=== PATIENT | female | born 1975 ===

== ENCOUNTER 2024-01-09 14:00 | Emergency (ER) | payer SELFPAY ==
[~2024-01-09] VITALS: Ht 154.9 cm; Wt 65.3 kg
[2024-01-09] MEDS: MethylPREDNISolone SOD SUCC 125 MG/2 ML VIAL IVP ONE (14:09)
[2024-01-09 14:12] VITALS: TEMP 98.6
[2024-01-09 14:18] VITALS: PULSE 80; RESP 20; O2SAT 98
[2024-01-09] MEDS: IPRATROPIUM BROMIDE 0.5 MG/2.5 ML NEB SOLUTION NEB ONE ×2 (14:18→15:50)
[2024-01-09] MEDS: ALBUTEROL SULFATE 2.5 MG/0.5 ML NEB SOLUTION NEB ONE ×2 (14:18→15:50)
[2024-01-09] MEDS ORDERED: IPRAHFA IH (14:25)
[2024-01-09] MEDS ORDERED: ALBU18HF12 IH (14:25)
[2024-01-09] MEDS ORDERED: TRAZ-252 PO (14:27)
[2024-01-09] MEDS ORDERED: CLON-598 PO (14:27)
[2024-01-09] MEDS ORDERED: VORT20TA PO (14:27)
[2024-01-09] MEDS ORDERED: FLUT12AE20 IH (14:27)
[2024-01-09] MEDS ORDERED: PANT20TA18 PO (14:27)
[2024-01-09 14:31] VITALS: PULSE 78; RESP 20; O2SAT 100
[2024-01-09] MEDS: ACETAMINOPHEN 500 MG TABLET PO ONE (14:31)
[2024-01-09 15:12] LABS: BASOPHILS % (AUTO) 1.3 % (0.0-2.0); EOSINOPHILS % (AUTO) 0.9 % (1.0-6.0); HEMATOCRIT 39.7 % (36-46); HEMOGLOBIN 12.7 g/dL (12.0-16.0); LYMPHOCYTES # (AUTO) 2.4 K/uL (1.0-4.8); LYMPHOCYTES % (AUTO) 26.6 % (22.0-44.0); MEAN CORPUSCULAR HEMOGLOBIN 27.6 pg (26.0-34.0); MEAN CORPUSCULAR HGB CONC 32.1 G/dL (31.0-37.0); MEAN CORPUSCULAR VOLUME 86 fL (80-100); MONOCYTES # (AUTO) 0.5 K/uL (0.1-1.0); MONOCYTES % (AUTO) 5.4 % (2.0-9.0); NEUTROPHILS # (AUTO) 5.8 K/uL (1.8-7.7); NEUTROPHILS % (AUTO) 65.8 % (40.0-70.0); PLATELET COUNT (AUTO) 362 K/uL (150-450); RED BLOOD CELL COUNT(AUTO) 4.62 MIL/uL (4.00-5.20); RED CELL DISTRIBUTION WIDTH 15.9 % (11.5-14.5); WHITE BLOOD COUNT (AUTO) 8.9 K/uL (4.5-11.0)
[2024-01-09] MEDS: LORazepam 1 MG TABLET PO ONE (15:48)
[2024-01-09] MEDS ORDERED: PRED-554 PO (15:50)
[2024-01-09 15:51] LABS: CALCIUM, TOTAL 8.5 mg/dL (8.8-10.5); CREATININE 1.42 mg/dL (0.60-1.30)
[2024-01-09 15:53] VITALS: PULSE 71; RESP 20; O2SAT 99
[2024-01-09 16:05] VITALS: PULSE 70; RESP 20; O2SAT 100
[2024-01-09 16:15] VITALS: BP 139/62; PULSE 76; RESP 19; O2SAT 98
[2024-01-09] MEDS ORDERED: ETON1VAG10 VG (16:21)
== END 2024-01-09 16:32 | disposition home or self-care (01) ==
LOC: EMS 14:00
DX: J45.909 Unspecified asthma, uncomplicated (principal); G43.909 Migraine, unspecified, not intractable, without status migrainosus; Z98.890 Other specified postprocedural states
CPT/HCPCS: 99285; 96374; 71045; 80048; 85025; 36415; 94640; 93005; J2919; J7613